=== PATIENT | female | born 1955 | race Caucasian/White ===

== ENCOUNTER 2018-06-15 07:35 | Outpatient (CLI) | payer OTHER | END 2018-06-15 17:00 | disposition home or self-care (01) | LOC: MRI 07:35 | DX: M51.27 Other intervertebral disc displacement, lumbosacral region (principal) | CPT/HCPCS: 72148 ==

== ENCOUNTER 2018-06-25 07:46 | Outpatient (CLI) | payer OTHER | END 2018-06-25 15:22 | disposition home or self-care (01) | LOC: MRI 07:46 | DX: M47.011 Anterior spinal artery compression syndromes, occipito-atlanto-axial region (principal) | CPT/HCPCS: 72141 ==